=== PATIENT | male | born 1940 | race Caucasian/White ===

== ENCOUNTER 2016-02-26 10:20 | Observation (INO) | payer OTHER, MEDICARE ==
[~2016-02-26 10:20] MED LIST: BUPIVACAINE 0.5% 30 ML SDV ONE; SKIN ADHESIVE (DERMABOND) 1 EACH TP ONE
[2016-02-26] MEDS ORDERED: CHLORHEXIDINE GLUC HIBICLENS 118 ML BTL TP ONE (10:59)
[2016-02-26] MEDS ORDERED: LIDOCAINE 1% 5 ML SDV ONE ×2 (11:05→11:21)
[2016-02-26] MEDS ORDERED: ceFAZolin 2 GM/DEXTROSE 100 ML IV ONE (11:30)
[2016-02-26] MEDS ORDERED: LR 1,000 ML IV ONE (11:36)
[2016-02-26] MEDS ORDERED: MIDAZOLAM 2 MG/2 ML VIAL ONE (11:47)
[2016-02-26] MEDS ORDERED: fentaNYL 100 MCG/2 ML INJ ONE (11:48)
[2016-02-26] MEDS ORDERED: PROPOFOL 200 MG/20 ML VIAL ONE (12:05)
[2016-02-26] MEDS ORDERED: fentaNYL 250 MCG/5 ML INJ ONE (12:05)
[2016-02-26] MEDS ORDERED: GLYCOPYRROLATE 0.2 MG/1 ML VIAL ONE (12:09)
[2016-02-26] MEDS ORDERED: METOCLOPRAMIDE 10 MG/2 ML VIAL ONE (12:09)
[2016-02-26] MEDS ORDERED: LIDOCAINE 2% JELLY 5 ML TUBE ONE (12:10)
[2016-02-26] MEDS ORDERED: DEXAMETHASONE 4 MG/ML VIAL ONE (13:14)
[2016-02-26] MEDS ORDERED: LIDOCAINE 2% 5 ML SDV ONE (13:37)
[2016-02-26] MEDS ORDERED: VASOPRESSIN 20 UNIT/ML VIAL ONE (13:37)
[2016-02-26] MEDS ORDERED: ROPIVACAINE HCL 150 MG/30 ML INJ ONE ×2 (13:38)
[2016-02-26] MEDS ORDERED: PHENYLEPHRINE HCL 100 MCG/ML SYR ONE (13:42)
[2016-02-26] MEDS ORDERED: ROPIVACAINE 0.2% 1,100 MG in PUMP SET 1 EA NB SCH ×2 (14:30→16:30)
[2016-02-26] MEDS ORDERED: ONDANSETRON 4 MG/2 ML VIAL ONE (15:29)
[2016-02-26] MEDS ORDERED: FAMOTIDINE 20 MG TAB PO PRN (15:59)
[2016-02-26] MEDS ORDERED: ONDANSETRON DISINTEGRATING 4 MG TAB PO PRN (15:59)
[2016-02-26] MEDS ORDERED: OXYCODONE/APAP 5/325 TAB PO PRN (15:59)
[2016-02-26] MEDS ORDERED: SIMETHICONE 80 MG TAB CHEW PO PRN (15:59)
[2016-02-26] MEDS ORDERED: ACETAMINOPHEN 325 MG TAB PO PRN (15:59)
[2016-02-26] MEDS ORDERED: HYDROmorphONE/DILAUDID 1 MG/ML SYR IVP PRN (15:59)
[2016-02-26] MEDS ORDERED: TEMAZEPAM 15 MG CAP PO PRN (15:59)
[2016-02-26] MEDS ORDERED: DIAZEPAM 5 MG TAB PO PRN (15:59)
[2016-02-26] MEDS ORDERED: HYDROCODONE/APAP 5/325 TAB PO PRN (15:59)
[2016-02-26] MEDS ORDERED: diphenhydrAMINE 25 MG CAP PO PRN (15:59)
[2016-02-26] MEDS ORDERED: D5W 1/2 NS W/ 20 KCl/L 1,000 ML IV SCH (16:00)
--- NOTE | 2016-02-26 16:04 | POSTOPPROG ---
Post Op Note Date of Operation: 02/26/16 Surgeon: Saeid Adkins [employer] Sales Representative: Shari Anesthesiologist: Myron Anesthesia: GET(General Endotracheal) Pre-op Diagnosis: left hindfoot djd Post-op Diagnosis: same Indication: above Procedure: left triple arthrodesis Findings: djd Inf/Abcess present in the surg proc area at time of surgery?: No EBL: 50-100
--- NOTE | 2016-02-26 16:57 | GOP ---
[f rep st] OPERATIVE REPORT DATE OF OPERATION: 02/26/2016 SURGEON: Saeid Adkins MD [employer] UNDERWRITER: Edenilson Mccarthy SA ANESTHESIA: General with popliteal block and adductor canal block. 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 POSTOPERATIVE DIAGNOSIS: Left severe adult acquired flatfoot deformity and hindfoot arthritis, tendo-Achilles contracture. PROCEDURE PERFORMED: 1. Left foot triple arthrodesis with fusion of the subtalar joint, the talonavicular joint and calcaneocuboid joint. 2. Lateral column lengthening through the calcaneocuboid joint fusion. 3. Tendo-Achilles lengthening [place] triple step cut. FINDINGS: SPECIMENS: None. ESTIMATED BLOOD LOSS: 50 mL. INDICATIONS: A 75-year-old male with severe flatfoot deformity and arthritis who presented with pain. He had failed conservative management. We discussed risks of nonunion, malunion, malposition, wound break down, hardware failure and nerve injury and elected to proceed. Informed consent was obtained, all questions were answered and he was marked preoperatively. DESCRIPTION OF PROCEDURE: He was taken to the operative suite. Antibiotics, 2 g of Ancef, and a block administered per anesthesia. A sterile prep and drape in normal fashion. Time-out was performed verifying site, side, location in agreement with the team. Incision was made at the sinus tarsi approach. Excision of the calcaneocuboid joint. Protected the soft tissue structures including the peroneal tendons and dissected down to the joint. I opened up the subtalar joint and calcaneocuboid joint and released these to help correct the deformity. There was arthritis present with severe deformity. I cleaned out and prepared the joints out with a combination of chisel saws, Rongeurs, curettes down to bleeding cancellous bony surfaces. I then exposed the lateral portion of the talonavicular joint and prepared this as well. We made a medial incision over the talonavicular joint and exposed this. The talar head was grossly dislocated out of the navicular through this incision. I was able to prepare the joint surface of the talonavicular joint through this incision down to bleeding cancellous bone. We used trials and selected a 10 degree Monk wedge and then manipulated the foot into what I felt like was a good correct position to pin the talonavicular joint. I pinned the subtalar joint with the wedge trial placed. I then placed bone graft in the subtalar joint and then placed a guide pin for an Acutrak screw and placed 7.5 Acutrak screw across this and then used a 2nd screw. Next, I hydrated the Monk wedge. Repinned the talonavicular joint and achieved distal correction. I felt this had compressed. I placed the Monk wedge in place and placed a plate over this and provisionally fixed this. I then placed Acutrak screws across the talonavicular joint, 3 in total. And then placed the plate achieving compression of the wedge in the calcaneocuboid joint. I then let down the tourniquet, obtained hemostasis, thoroughly irrigated this, and closed this with 0 Vicryl, 2-0 Vicryl, 3-0 nylon, 3-0 Monocryl, Dermabond and placed in sterile dressing and splint and taken to PACU in stable condition. IMPLANTS: Acutrak screws 7.5 and 5.5, as well as Acutrak 4 hole peanut plate and 10 Monk allograft bone wedge, 2 cc of allograft bone. COMPLICATIONS: None. DRAINS: None. CONDITION: Stable. /[id number]/MODL MTDD
[2016-02-26 17:33] VITALS: RESP 16
[2016-02-26] MEDS ORDERED: PRAVASTATIN SODIUM 20 MG TAB PO SCH (18:00)
[2016-02-26] MEDS: ceFAZolin 2 GM/DEXTROSE 100 ML IV SCH (21:10)
[2016-02-26] MEDS: METOPROLOL TARTRATE 50 MG TAB PO SCH (21:11)
[2016-02-27 05:30] LABS: HEMOGLOBIN 11.6 g/dL (13.7-17.5)
[2016-02-27] MEDS: ceFAZolin 2 GM/DEXTROSE 100 ML IV SCH (05:39)
[2016-02-27 08:46] VITALS: BP 139/83; TEMP 98.4
[2016-02-27] MEDS ORDERED: ASPIRIN 81 MG CHEWABLE TAB PO SCH (09:00)
[2016-02-27] MEDS ORDERED: NIACIN 500 MG TAB PO SCH (09:00)
[2016-02-27] MEDS ORDERED: ENOXAPARIN 40 MG/0.4 ML SYR SC SCH (09:00)
[2016-02-27] MEDS ORDERED: DOXAZOSIN MESYLATE 1 MG TAB PO SCH (09:00)
[2016-02-27] MEDS ORDERED: OMEGA-3 FATTY ACIDS 1,000 MG CAP PO SCH (09:00)
--- NOTE | 2016-02-27 09:36 | SOAPPROG ---
JUAN JOSE Progress Note Assessment/Plan: Assessment: s/p L triple arthrodesis Plan: NWB LLE ASA for dvt prophalaxisis for home d/c home elavet ice 02/27/16 09:35 Subjective: min pain Objective: Vital Signs Temp Pulse Resp BP Pulse Ox 36.9 C 79 16 139/83 H 97 02/27/16 08:00 02/27/16 08:00 02/27/16 08:00 02/27/16 08:00 02/27/16 08:00 Laboratory Results 02/27/16 05:14 02/26/16 02/27/16 02/28/16 05:59 05:59 05:59 Intake Total 3000 Output Total 420 350 Balance 2580 -350 splint intact toes numb ICD10 Worksheet Patient Problems: Problems Problem Status Diagnosed Postoperative atrial fibrillation Acute S/P CABG x 3 Acute CAD (coronary artery disease), [place] coronary artery Chronic Coronary stent restenosis Chronic
[2016-02-27] MEDS: METOPROLOL TARTRATE 50 MG TAB PO SCH (09:44)
--- NOTE | 2016-02-27 10:29 | GDS ---
[f rep st] DISCHARGE SUMMARY REASON FOR HOSPITALIZATION: Left triple arthrodesis. HOSPITAL COURSE: He was admitted to the hospital after a left triple arthrodesis. He was able to ob tain good pain control. He cleared physical therapy, tolerated diet and no additional concerns. Met criteria for discharge home. DISPOSITION: Home. CONDITION: Stable. CONSULTING PHYSICIANS: None. PROCEDURE: Left triple arthrodesis. He was sent home on a regular diet. He was sent home nonweightbearing. He was sent home in a splint , to keep this dry. Will elevate as much as possible. He was given pain medication, oxycodone Ultra m as well as Zofran. He will restart his home medications including his aspirin which will serve as DVT prophylaxis. He will call or come into the hospital if he has chest pain, shortness of breath, abnormal bleeding or other concerns. /[id number]/MODL
--- NOTE | 2016-02-27 12:04 | PDIAF ---
- Diagnosis Code Status: Full Code - Medication Management Discharge Medications: Medications to Continue on Transfer Aspirin [Aspirin 81mg (*)] 81 mg PO DAILY 06/07/12 [Last Taken 02/23/16] Doxazosin Mesylate [Cardura 1 MG (*)] 1 mg PO DAILY 06/07/12 [Last Taken ] Simvastatin [Zocor 10 mg] 10 mg PO DAILY18 06/07/12 [Last Taken 02/25/16] Herbals/Supplements -Info Only 1 ea PO DAILY 08/23/15 [Last Taken 02/19/16] Niacin [Niacin 500 mg (*)] 250 mg PO DAILY 08/23/15 [Last Taken 02/19/16] Metoprolol Tartrate [Lopressor 50 mg (*)] 50 mg PO BID 08/28/15 [Last Taken 05/09] [place]-3 Fatty Acids [Fish Oil 1000 mg (*)] 1,000 mg PO DAILY 08/28/15 [Last Taken 02/19/16] Hydrochlorothiazide [HCTZ (*)] 25 mg PO DAILY@18 02/19/16 [Last Taken 02/25/16] Aspirin [Aspirin 81mg (*)] 81 mg PO DAILY #0 tab.chew 02/27/16 [Last Taken Unknown] Discharge Medications: Refer to the Discharge Home Medication list for PRN reason. - Orders Services needed: Home Care, Physical Therapy, Occupational Therapy Home Care Face to Face: I certify that this patient was under my care and that I had the required [id number] encounter meeting the encounter requirements on the discharge day. My findings support the fact that the patient is homebound as defined in CMS Chapter 7 Medicare Benefits Manual 30.1.1, The condition of the patient is such that there exists a normal inability to leave home and consequently, leaving home would require a considerable and taxing effort. Diet Recommendation: no restrictions on diet Diet Texture: Regular Texture Diet - Follow Up Care Current Providers and Referrals: DUTCH CLINTON [Primary Care Provider] -
[2016-02-27 14:09] VITALS: PULSE 72; O2SAT 98
== END 2016-02-27 12:06 | disposition home health service (06) ==
LOC: F3N 10:20
PROVIDERS: ADMIT Orthopaedic Surgery; ATTEND Orthopaedic Surgery
PROC: 0SU Lower Joints, Supplement (ICD-10-PCS; principal; 2016-02-26 12:00)
PROC: 0SGG04Z Fusion of Left Ankle Joint with Internal Fixation Device, Open Approach (ICD-10-PCS; principal; 2016-02-26 12:00)
PROC: 0LNT0ZZ Release Left Ankle Tendon, Open Approach (ICD-10-PCS; principal; 2016-02-26 12:00)
DX: M19.072 Primary osteoarthritis, left ankle and foot (principal); M21.42 Flat foot [pes planus] (acquired), left foot; M24.572 Contracture, left ankle
CPT/HCPCS: 27685; 27870; 97162; 97166; 97535; C1713; C1762; C1769; G8978; G8979; G8987; G8988; J0690; J1100; J1650; J2250; J2370; J2405; J2704; J2765; J2795; J3010

== ENCOUNTER → 2016-11-06 | Outpatient (CLI) | payer OTHER, MEDICARE | LOC: BHLMT 09:00 | PROVIDERS: ATTEND Internal Medicine Interventional Cardiology | DX: Z01.810 Encounter for preprocedural cardiovascular examination (principal); I25.10 Atherosclerotic heart disease of native coronary artery without angina pectoris; I10 Essential (primary) hypertension; E78.5 Hyperlipidemia, unspecified | CPT/HCPCS: 93005-PO ==

== ENCOUNTER 2017-08-24 06:09 | Observation (INO) | payer OTHER, MEDICARE ==
--- NOTE | 2017-08-24 06:12 | EDPHY ---
H & P Time Seen by Provider: 08/24/17 06:12 HPI/ROS: HPI CHIEF COMPLAINT: Chest discomfort left arm pain HISTORY OF PRESENT ILLNESS: Patient is a 76-year-old male, presents emergency room with chest discomfort. He states around 2:00 a.m. He developed substernal left-sided pressure dull ache in the left side of his chest. He had some referred pain down his left arm with numbness and tingling. He denies any pleuritic pain or shortness of breath associated with that he denies any nausea or diaphoresis. No jaw pain or neck pain. This lasted about 45 min to an hour it concerned him and decided come the emergency room at 6:15 a.m. In the morning. Currently denies any significant pain. He does tell me over the past month he has had this for 5 times. He is unsure if it actually happens exertion he does know happens at rest. Past Medical History: History of hypertension, hyperlipidemia, coronary artery disease with stents, bypass Past Surgical History: CABG Social History: Denies daily use of drugs alcohol tobacco. Family History: Noncontributory ROS REVIEW OF SYSTEMS: A comprehensive 10 point review of systems is otherwise negative aside from elements mentioned in the history of present illness. Exam Constitutional nontoxic appearing, triage nursing summary reviewed, vital signs reviewed, awake/alert. Eyes normal conjunctivae and sclera, EOMI, PERRLA. HENT normal inspection, atraumatic, moist mucus membranes, no epistaxis, neck supple/ no meningismus, no raccoon eyes. Respiratory clear to auscultation bilaterally, normal breath sounds, no respiratory distress, no wheezing. Cardiovascular rate normal, regular rhythm, no murmur, no edema, distal pulses normal. Gastrointestinal soft, non-tender, no rebound, no guarding, normal bowel sounds, no distension, no pulsatile mass. Genitourinary no CVA tenderness. Musculoskeletal no midline vertebral tenderness, full range of motion, no calf swelling, no tenderness of extremities, no meningismus, good pulses, neurovascularly intact. Skin pink, warm, & dry, no rash, skin atraumatic. Neurologic awake, alert and oriented x 3, AAOx3, moves all 4 extremities equally, motor intact, sensory intact, CN II-XII intact, normal cerebellar, normal vision, normal speech. Psychiatric normal mood/affect. Heme/Lymph/Immune no lymphadenopathy. Differential diagnosis includes but is not limited to: ACS, atypical chest pain , pneumothorax, pneumonia, pulmonary embolism, aortic dissection, congestive heart failure, tumor, musculoskeletal pain, esophageal pain, GERD, peptic ulcer disease, pancreatitis Medical Decision Making: Plan for this patient IV establishment full secured entrance monitor obtain EKG to rule out acute coronary syndrome, obtain troponin, chest x -ray, full-dose aspirin and re-evaluate. Patient has significant cardiovascular risk factors most likely will need to be admitted for further chest pain evaluation. Re-evaluation: EKG interpretation by me on record in [employer] system. Impression time of EKG 6:16 a.m., this is sinus rhythm rate of 64 there is incomplete left bundle- branch block present. There is no ST elevation there is no significant ST depression there is no significant T-wave inversions. When I compare this to his old EKG dated 08/28/2015 very similar morphology. Troponin noted to be 0.00. ED x-ray chest one view: Cardiomegaly present. Patient need to be admitted the hospital service for further cardiac evaluation his cardiovascular risk factors include hypertension, hyperlipidemia, coronary disease with stents, CABG. 0650: Patient is chest pain-free at this time will need admission. No evidence of acute coronary syndrome at this time. 0709AM: Spoke with Hospalist service Dr. Lara agrees to admit. Source: Patient - Medical/Surgical History Hx Asthma: No Hx Chronic Respiratory Disease: No Hx Diabetes: No Hx Cardiac Disease: Yes Hx Renal Disease: No Hx Cirrhosis: No Hx Alcoholism: No Hx HIV/AIDS: No Hx Splenectomy or Spleen Trauma: No Other PMH: CAD w/ Stents, HTN, HLD, family history of heart disease - Social History Smoking Status: Never smoked Constitutional: Initial Vital Signs Temperature (C) 36.6 C 08/24/17 06:10 Heart Rate 67 08/24/17 06:10 Respiratory Rate 16 08/24/17 06:10 Blood Pressure 177/93 H 08/24/17 06:10 O2 Sat (%) 95 08/24/17 06:10 O2 Delivery Mode Room Air Allergies/Adverse Reactions: No Known Allergies Allergy (Verified 08/24/17 06:13) Home Medications: Medication Instructions Recorded Herbals/Supplements -Info Only 1 ea PO DAILY 08/23/15 Niacin [Niacin 500 mg (*)] 500 mg PO HS 08/23/15 Hydrochlorothiazide [HCTZ (*)] 25 mg PO DAILY 02/19/16 Aspirin [Aspirin 81mg (*)] 81 mg PO DAILY #0 tab.chew 02/27/16 Metoprolol Tartrate [Lopressor 25 25 mg PO BID 08/24/17 mg (*)] Medical Decision Making - Data Points Laboratory Results: Laboratory Results 08/24/17 06:22 08/24/17 06:22 Medications Given: Acetaminophen (Tylenol) 650 mg PO Q4HRS PRN PRN Reason: Pain, Mild/Fever, Can Take PO Stop: 02/20/18 07:08 Last Admin: 08/25/17 01:11 Dose: 650 mg Enoxaparin Sodium (Lovenox) 40 mg SC DAILY [facility] Stop: 02/20/18 08:59 Last Admin: 08/24/17 10:05 Dose: 40 mg Metoprolol Tartrate (Lopressor) 25 mg PO BID [facility] Stop: 02/20/18 09:44 Last Admin: 08/24/17 20:44 Dose: 25 mg Point of Care Test Results: Chemistry 08/24/17 06:28 POC Troponin I 0.00 ng/mL ng/mL (0.00-0.08) Departure - Departure Disposition: [facility] Inpatient Acute Clinical Impression: Chest pain Qualifiers: Chest pain type: unspecified Qualified Code(s): R07.9 - Chest pain, unspecified Condition: Fair
--- NOTE | 2017-08-24 06:18 | CPEKG ---
Heart Rate: 64 RR Interval: 938 P-R Interval: 188 QRSD Interval: 116 QT Interval: 424 QTC Interval: 438 P [place]: 17 QRS [place]: -63 T Wave [place]: 25 EKG Severity - ABNORMAL ECG - EKG Impression: SINUS RHYTHM EKG Impression: ATRIAL PREMATURE COMPLEX EKG Impression: INCOMPLETE LEFT BUNDLE BRANCH BLOCK EKG Impression: ANTERIOR Q WAVES, POSSIBLY DUE TO ILBBB Electronically Signed By: Momo Schaffer 24-Aug-2017 08:07:32
[2017-08-24 06:33] LABS: PLATELET COUNT 208 10^3/uL (150-400)
[2017-08-24 06:41] LABS: INR 0.99 (0.83-1.16); PROTIME(PATIENT) 13.3 SEC (12.0-15.0)
[2017-08-24] MEDS ORDERED: ONDANSETRON 4 MG/2 ML VIAL IVP PRN (07:09)
[2017-08-24] MEDS ORDERED: ONDANSETRON DISINTEGRATING 4 MG TAB PO PRN (07:09)
--- NOTE | 2017-08-24 07:38 | PDGENHP ---
History and Physical - Chief Complaint Chest pain - History of Present Illness 76 yo M w/ hx of CAD s/p PCI and CABG presents with chest pain. Patient tells me he has had intermittent chest pain for several months. Over the last month, this has occurred every couple of days, sometimes at rest but occasionally with exertion. He exercises 5-6x weekly at the gym. Early this morning, around 2 AM, he had an episode of pain he found more concerning. He describes it as left sided, first as 4/10 severity but progressed to 8/10 severity. The pain involved L arm numbness as well. The duration of the pain was about 45 minutes, he denies additional associated symptoms. Work-up in the ED has been unremarkable so far with ECG stable compared to prior and troponin negative. He is currently chest pain free. Case discussed with Dr. Giraldo, previous records reviewed. History Information - Allergies/Home Medication List Allergies/Adverse Reactions: No Known Allergies Allergy (Verified 08/24/17 06:13) Home Medications: Simvastatin [Zocor 10 mg] 10 mg PO DAILY18 06/07/12 [Last Taken 02/25/16] Herbals/Supplements -Info Only 1 ea PO DAILY 08/23/15 [Last Taken 02/19/16] Niacin [Niacin 500 mg (*)] 250 mg PO DAILY 08/23/15 [Last Taken 02/19/16] Hydrochlorothiazide [HCTZ (*)] 25 mg PO DAILY@18 02/19/16 [Last Taken 02/25/16] Metoprolol Tartrate [Lopressor 25 mg (*)] 25 mg PO BID 08/24/17 [Last Taken 04/12 05:00] I have personally reviewed and updated: family history, medical history - Past Medical History coronary artery disease - Surgical History Reports: coronary bypass surgery, coronary stent - Family History Positive for: CAD - Social History Smoking Status: Never smoked Review of Systems Review of Systems: ROS: 10pt was reviewed & negative except for what was stated in HPI & below Physical Exam Physical Exam: Temp Pulse Resp BP Pulse Ox 36.6 C 67 16 177/93 H 95 08/24/17 06:10 08/24/17 06:10 08/24/17 06:10 08/24/17 06:10 08/24/17 06:10 Constitutional: no apparent distress, not in pain Eyes: PERRL, EOMI Ears, Nose, Mouth, Throat: moist mucous membranes, no oral mucosal ulcers Cardiovascular: regular rate and rhythym, other (S4, occasional irregular beats) , No edema Respiratory: no respiratory distress, clear to auscultation Gastrointestinal: normoactive bowel sounds, soft, non-tender abdomen Skin: warm, normal color Musculoskeletal: full muscle strength, no muscle tenderness Neurologic: AAOx3, CN II-XII Intact Psychiatric: interacting appropriately, not anxious Lab Data & Imaging Review 08/24/17 06:22 08/24/17 06:22 WBC 7.04 10^3/uL (3.80-9.50) 08/24/17 06:22 RBC 4.62 10^6/uL (4.40-6.38) 08/24/17 06:22 Hgb 14.8 g/dL (13.7-17.5) 08/24/17 06:22 Hct 42.3 % (40.0-51.0) 08/24/17 06:22 MCV 91.6 fL (81.5-99.8) 08/24/17 06:22 MCH 32.0 pg (27.9-34.1) 08/24/17 06:22 MCHC 35.0 g/dL (32.4-36.7) 08/24/17 06:22 RDW 13.1 % (11.5-15.2) 08/24/17 06:22 Plt Count 208 10^3/uL (150-400) 08/24/17 06:22 MPV 9.8 fL (8.7-11.7) 08/24/17 06:22 Neut % (Auto) 64.4 % (39.3-74.2) 08/24/17 06:22 Lymph % (Auto) 20.2 % (15.0-45.0) 08/24/17 06:22 [place] % (Auto) 11.9 % (4.5-13.0) 08/24/17 06:22 Eos % (Auto) 2.6 % (0.6-7.6) 08/24/17 06:22 Baso % (Auto) 0.6 % (0.3-1.7) 08/24/17 06:22 Nucleat RBC Rel Count 0.0 % (0.0-0.2) 08/24/17 06:22 Absolute Neuts (auto) 4.54 10^3/uL (1.70-6.50) 08/24/17 06:22 Absolute Lymphs (auto) 1.42 10^3/uL (1.00-3.00) 08/24/17 06:22 Absolute Monos (auto) 0.84 10^3/uL (0.30-0.80) H 08/24/17 06:22 Absolute Eos (auto) 0.18 10^3/uL (0.03-0.40) 08/24/17 06:22 Absolute Basos (auto) 0.04 10^3/uL (0.02-0.10) 08/24/17 06:22 Absolute Nucleated RBC 0.00 10^3/uL (0-0.01) 08/24/17 06:22 Immature Gran % 0.3 % (0.0-1.1) 08/24/17 06: Immature Gran # 0.02 10^3/uL (0.00-0.10) 08/24/17 06:22 PT 13.3 SEC (12.0-15.0) 08/24/17 06:22 INR 0.99 (0.83-1.16) 08/24/17 06:22 APTT 26.4 SEC (23.0-38.0) 08/24/17 06:22 Sodium 140 mEq/L (135-145) 08/24/17 06:22 Potassium 4.2 mEq/L (3.3-5.0) 08/24/17 06:22 Chloride 104 mEq/L (97-110) 08/24/17 06:22 Carbon Dioxide 28 mEq/l (22-31) 08/24/17 06:22 Anion Gap 8 mEq/L (8-16) 08/24/17 06:22 BUN 44 mg/dL (7-23) H 08/24/17 06:22 Creatinine 1.6 mg/dL (0.7-1.3) H 08/24/17 06:22 Estimated GFR 42 08/24/17 06:22 Glucose 103 mg/dL (70-100) H 08/24/17 06:22 Calcium 9.2 mg/dL (8.5-10.4) 08/24/17 06:22 Magnesium 2.1 mg/dL (1.6-2.3) 08/24/17 06:22 Total Bilirubin 0.5 mg/dL (0.1-1.4) 08/24/17 06:22 Conjugated Bilirubin 0.3 mg/dL (0.0-0.5) 08/24/17 06:22 Unconjugated Bilirubin 0.2 mg/dL (0.0-1.1) 08/24/17 06:22 AST 20 IU/L (17-59) 08/24/17 06:22 ALT 30 IU/L (21-72) 08/24/17 06:22 Alkaline Phosphatase 79 IU/L (38-126) 08/24/17 06:22 POC Troponin I 0.00 ng/mL (0.00-0.08) 08/24/17 06:28 NT-Pro-B Natriuret Pep 187 pg/mL (0-125) H 08/24/17 06:22 Total Protein 7.0 g/dL (6.3-8.2) 08/24/17 06:22 Albumin 3.5 g/dL (3.5-5.0) 08/24/17 06:22 Visualized and Interpreted Chest x-ray results: Yes Chest X-Ray results: no infiltrate Visualized and Interpreted EKG results: Yes EKG Interpretation: Positive for: left bundle branch block (Incomplete, similar to 2016 comparison), normal sinsus rhythm Assessment & Plan Assessment: 76 yo M w/ hx of CAD s/p CABG presents with chest pain. Plan: 1. Chest pain - Occurring every few days for 2 months with increased severity early this morning at rest. Initial work-up negative with normal troponin and ECG unchanged from prior(personally interpreted). He is currently chest pain free. - Admit to PCU for observation - Monitor on telemetry, trend cardiac enzymes (next at 1200). - Patient tells me he would be unable to exercise on a treadmill due to previous foot surgery - I will consult cardiology to consider nuclear stress vs. diagnostic LHC for further evaluation 2. Hx CAD - With hx of prior PCI followed by CABG [place] [address] [place]. He has not been taking his statin because he forgot it in [place]. - Cardiology consult as above - Continue home medications 3. HTN - Continue home medications, needs reconciliation Diet - NPO pending risk stratification Code - Full Ppx - LMWH Dispo - Admit under observation status
[2017-08-24] MEDS: ENOXAPARIN 40 MG/0.4 ML SYR SC SCH (10:05)
[2017-08-24] MEDS: METOPROLOL TARTRATE 25 MG TAB PO SCH ×2 (10:05→20:44)
--- NOTE | 2017-08-24 10:27 | PDCARCONS ---
Cardiology Consult Reason for Consult: Coronary artery disease, prior coronary artery bypass graft surgery, clinical presentation with chest pain. Chief Complaint: Chest pain. Requesting Physician: Dr. Lara. History of Present Illness: This is a 76-year-old male typically followed as an outpatient by Dr. Yannick Vergara. He has a history of coronary artery disease which dates back to the late s. Most recently in 2009 and 2012 he underwent PCI of the LAD and RCA respectively. Ultimately, in August of 2015 he presented with symptoms of exertional dyspnea. Following abnormal stress testing he underwent cardiac catheterization and ultimately three-vessel CABG. Historically his ejection fraction has been normal. He did have a single episode of postoperative atrial fibrillation following his CABG in August of 2015. There has been no indication of recurrent arrhythmias. He has not typically taken systemic anticoagulation since then. Cardiac risk factors in addition to his age/gender include hypertension and hyperlipidemia. At his baseline he is very active individual. He is currently retired. He likes to exercise 5 days a week doing a combination of cardiovascular training and weight training. He is usually able to exercise without chest discomfort. He states for the last several months he has been experiencing intermittent chest pain. Usually these occur at night and her usually not exacerbated by physical activities. He points to an area over his left chest and states that often times he is awaken from sleep with a "vice"like chest pain. He can find an area on the chest wall where he can push in reproduce his chest pain. These symptoms often times can be severe sometimes 8/10 in intensity. Usually they will partially resolved improving to a 2/10 in intensity which can last for several days at a time. Sometimes he thinks the pain is little bit worse with deep inspiration. He does note that his symptoms are similar to his prior chest discomfort during which times he has had his previous stents placed. He has not had associated symptoms of shortness of breath, nausea, vomiting or diaphoresis with these episodes of discomfort. Occasionally he does have a sensation of "flutter"in his chest. Additionally, he has episodes where he feels lightheaded. These were ancillary comments not related to his principal complaint. On arrival to the emergency department he was hemodynamically stable. His initial point of care troponin was negative. His initial ECG did not demonstrate any dynamic changes. He has been placed in the telemetry unit. Currently states he is nearly pain-free. History Information - Allergies/Home Medication List Allergies/Adverse Reactions: No Known Allergies Allergy (Verified 08/24/17 06:13) Home Medications: Herbals/Supplements -Info Only 1 ea PO DAILY 08/23/15 [Last Taken 02/19/16] Niacin [Niacin 500 mg (*)] 500 mg PO HS 08/23/15 [Last Taken 08/23/17] Hydrochlorothiazide [HCTZ (*)] 25 mg PO DAILY 02/19/16 [Last Taken 08/24/17 05: 00] Metoprolol Tartrate [Lopressor 25 mg (*)] 25 mg PO BID 08/24/17 [Last Taken 04/12 05:00] I have personally reviewed and updated: family history, medical history, social history, surgical history Past Medical History: Coronary artery disease with previous stenting and ultimately coronary artery bypass graft surgery 08/28/2015, hypertension, hyperlipidemia, mild COPD, BPH. - Surgical History Additional surgical history: Coronary artery bypass graft surgery x3 vessels in August of 2015, bilateral cataract surgery, bilateral blepharoplasty, foot surgery. - Social History Smoking Status: Never smoked Alcohol Use: Rarely Drug Use: None Additional social history: He is and accompanied by his of 9 years. As stated previously he likes to exercise regularly usually 5 days a week performing a combination of riding the exercise bicycle, using the rowing machine and doing light weights. He is originally from [place]. He has lived in [place] for more than 30 years. He is currently retired. Cardiac History - Cardiac History Past Cardiac History: CAD, PCI, CABG Physical Exam Physical Exam: Temp Pulse Resp BP Pulse Ox 37.0 C 62 18 131/71 H 95 08/24/17 07:47 08/24/17 07:47 08/24/17 07:47 08/24/17 07:47 08/24/17 07:47 Constitutional: no apparent distress, appears nourished, not in pain Eyes: PERRL, anicteric sclera, EOMI Ears, Nose, Mouth, Throat: moist mucous membranes, hearing normal, ears appear normal, no oral mucosal ulcers Cardiovascular: regular rate and rhythym, no murmur, rub, or gallop, pulses symmetric bilaterally, No JVD, No edema Peripheral Pulses: 2+: carotid (R), carotid (L) Respiratory: no respiratory distress, no rales or rhonchi, clear to auscultation Gastrointestinal: normoactive bowel sounds, soft, non-tender abdomen, no palpable masses Genitourinary: no bladder fullness, no bladder tenderness Skin: warm, normal color, no rashes or abrasions, no fluctuance, no induration, No mottled Musculoskeletal: full muscle strength, no muscle tenderness, normal joint ROM, no joint effusions Psychiatric: interacting appropriately, not anxious, not encephalopathic, thought process linear Lymph, Heme, Immunologic: no cervical LAD, no supraclavicular LAD Lab and Imaging 08/24/17 06:22 08/24/17 06:22 WBC 7.04 10^3/uL (3.80-9.50) 08/24/17 06:22 RBC 4.62 10^6/uL (4.40-6.38) 08/24/17 06:22 Hgb 14.8 g/dL (13.7-17.5) 08/24/17 06:22 Hct 42.3 % (40.0-51.0) 08/24/17 06:22 MCV 91.6 fL (81.5-99.8) 08/24/17 06:22 MCH 32.0 pg (27.9-34.1) 08/24/17 06:22 MCHC 35.0 g/dL (32.4-36.7) 08/24/17 06:22 RDW 13.1 % (11.5-15.2) 08/24/17 06:22 Plt Count 208 10^3/uL (150-400) 08/24/17 06:22 MPV 9.8 fL (8.7-11.7) 08/24/17 06:22 Neut % (Auto) 64.4 % (39.3-74.2) 08/24/17 06:22 Lymph % (Auto) 20.2 % (15.0-45.0) 08/24/17 06:22 [place] % (Auto) 11.9 % (4.5-13.0) 08/24/17 06:22 Eos % (Auto) 2.6 % (0.6-7.6) 08/24/17 06:22 Baso % (Auto) 0.6 % (0.3-1.7) 07/02/18 06:22 Nucleat RBC Rel Count 0.0 % (0.0-0.2) 08/24/17 06:22 Absolute Neuts (auto) 4.54 10^3/uL (1.70-6.50) 08/24/17 06:22 Absolute Lymphs (auto) 1.42 10^3/uL (1.00-3.00) 08/24/17 06:22 Absolute Monos (auto) 0.84 10^3/uL (0.30-0.80) H 08/24/17 06:22 Absolute Eos (auto) 0.18 10^3/uL (0.03-0.40) 08/24/17 06:22 Absolute Basos (auto) 0.04 10^3/uL (0.02-0.10) 08/24/17 06:22 Absolute Nucleated RBC 0.00 10^3/uL (0-0.01) 08/24/17 06:22 Immature Gran % 0.3 % (0.0-1.1) 08/24/17 06:22 Immature Gran # 0.02 10^3/uL (0.00-0.10) 08/24/17 06:22 PT 13.3 SEC (12.0-15.0) 08/24/17 06:22 INR 0.99 (0.83-1.16) 08/24/17 06:22 APTT 26.4 SEC (23.0-38.0) 08/24/17 06:22 Sodium 140 mEq/L (135-145) 08/24/17 06:22 Potassium 4.2 mEq/L (3.3-5.0) 08/24/17 06:22 Chloride 104 mEq/L (97-110) 08/24/17 06:22 Carbon Dioxide 28 mEq/l (22-31) 08/24/17 06:22 Anion Gap 8 mEq/L (8-16) 08/24/17 06:22 BUN 44 mg/dL (7-23) H 08/24/17 06:22 Creatinine 1.6 mg/dL (0.7-1.3) H 08/24/17 06:22 Estimated GFR 42 08/24/17 06:22 Glucose 103 mg/dL (70-100) H 08/24/17 06:22 Calcium 9.2 mg/dL (8.5-10.4) 08/24/17 06:22 Magnesium 2.1 mg/dL (1.6-2.3) 08/24/17 06:22 Total Bilirubin 0.5 mg/dL (0.1-1.4) 08/24/17 06:22 Conjugated Bilirubin 0.3 mg/dL (0.0-0.5) 08/24/17 06:22 Unconjugated Bilirubin 0.2 mg/dL (0.0-1.1) 08/24/17 06:22 AST 20 IU/L (17-59) 08/24/17 06:22 ALT 30 IU/L (21-72) 08/24/17 06:22 Alkaline Phosphatase 79 IU/L (38-126) 08/24/17 06:22 POC Troponin I 0.00 ng/mL (0.00-0.08) 08/24/17 06:28 NT-Pro-B Natriuret Pep 187 pg/mL (0-125) H 08/24/17 06:22 Total Protein 7.0 g/dL (6.3-8.2) 08/24/17 06:22 Albumin 3.5 g/dL (3.5-5.0) 08/24/17 06:22 Visualized and Interpreted Chest x-ray results: Yes Chest X-ray Interpretation: no infiltrate Visualized and Interpreted EKG results: Yes EKG additional interpertation: Normal sinus rhythm. Left anterior fascicular block. Anteroseptal AL age undetermined likely related to the presence of the left anterior fascicular block. No dynamic ST/T changes. Telemetry: Normal sinus rhythm. No arrhythmia. Echocardiogram: Pending. A/P Assessment: 76-year-old male who has an extensive coronary artery disease history dating back to the late 90s with multiple prior PCIs culminating in 3 vessel bypass surgery 08/28/2015. Typically he has done very well. Historically, he has had a preserved ejection fraction and has been active and asymptomatic. He presents now with a several month history of atypical chest discomfort. His chest pain is atypical in the sense that he can localize an area on the chest wall that reproduces his symptoms. He does, however, state that his current symptoms are similar to his symptoms during which time in the past he has had coronary interventions. Thus far his cardiac enzymes have been negative, his ECG is unremarkable and his hemodynamics have been stable. His symptoms really are not suggestive of other processes such as PE or aortic dissection. Additionally , there is no indication of an infectious process at the present time. Plan: 1. He has been admitted to telemetry and will be monitored. 2. Sequential cardiac enzymes have been ordered. 3. His home medications will be restarted. 4. I have ordered an echocardiogram to evaluate for the presence of new wall motion abnormalities. 5. As long as his noon troponin is negative I think that he can eat today. I do not think he requires urgent cardiac catheterization or testing that requires him to be NPO. 6. I have written for a stress myocardial perfusion imaging study which can be performed tomorrow provided his cardiac enzymes remain negative. 7. We will plan to evaluate his lipid status and level of blood pressure control during this hospitalization. 8. We will follow along with you. Review of Systems Review of Systems: - Review of Systems Constitutional: no symptoms reported EENTM: no symptoms reported Respiratory: no symptoms reported Gastrointestinal/Abdominal: see HPI Genitourinary: no symptoms Musculoskelatal: see HPI Skin: no symptoms Neurological: no symptoms Hematologic/Lymphatic: no symptoms reported Immunologic/allergic: no symptoms reported All Other Systems: Reviewed and Negative
--- NOTE | 2017-08-24 12:45 | ECHO ---
[email or web address] [address] [address] Main: [phone] Fax: Transthoracic Echocardiogram Name: MACI KASPER MR#: [id number] Study Date: 08/24/2017 Study Time: 11:33 AM Date of : 1940 Age: 76 year(s) Height: 175.3 cm (69 in.) Weight: 79.38 kg (175 lb.) BSA: 1.95 m2 Gender: Male Examination: Echo Indication: Coronary artery disease, h/o CABG, Chest Pain Image Quality: Technically Difficult Contrast: Requested by: Russ Stewart BP: 118 mmHg/78 mmHg Heart Rate: Rhythm: Indication: Coronary artery disease, h/o CABG, Chest Pain Procedure Staff Angiographer: Janee Liu [facility] Reading Physician: Russ Stewart MD Requesting Provider: Conclusions: Normal size left ventricle. Borderline concentric LV hypertrophy. Low normal left ventricular systolic function. EF is 49 %. Grade 1 diastolic dysfunction (abnormal relaxation). The left atrium is mildly dilated. Trivial to mild mitral regurgitation. Trivial to mild aortic valve regurgitation. Mild tricuspid regurgitation is present. Right ventricular systolic pressure measures 30mmHg. Measurements: Chambers Valvular Assessment AV/MV Valvular Assessment TV/PV Normal Normal Normal Name Value Range Name Value Range Name Value Range Ao Ela (MM): 3.6 cm (2.2 cm-3.7 AV Vmax: 0.85 m/s (1 m/s-1.7 TR Vmax: 2.52 mm/s ( - ) cm) m/s) TR PGmax: 25 mmHg ( - ) IVSd (2D): 1.0 cm (0.6 cm-1.1 AV maxP mmHg ( - ) syst. PAP: 30 mmHg ( - ) cm) LVOT Vmax: 0.66 m/s (0.7 m/s-1.1 PV Vmax: 1.00 m/s (0.6 m/s-0.9 LVDd (2D): 5.5 cm (4.2 cm-5.9 m/s) m/s) cm) MV E Vmax: 0.38 m/s ( - ) PV PGmax: 4 mmHg ( - ) LVDs (2D): 3.9 cm (2.1 cm-4 MV A Vmax: 0.47 m/s ( - ) cm) MV E/A: 0.81 ( - ) LVPWd (2D): 0.9 cm (0.6 cm-1 cm) LVEF (BP): 49 % (>=55 %) RVDd(2D): 2.6 cm (1.9 cm-3.8 cmmm) Continued Measurements: Patient: MACI KASPER Study Date: 08/24/2017 Page 1 of 2 11:33 AM Chambers Valvular Assessment AV/MV Valvular Assessment TV/PV Name Value Name Value Name Value LADs Lon.9 cm MV DecTime: 363 m/s CVP (est.): 5 mmHg LA Area: 23.2 cm2 MV E/E' Septal: 6.70 LA Volume: 73 ml MV E/E' Lateral: 6.50 LA Volume Index: 37.4 ml/m2 RA Area: 18.0 cm2 Findings: Left Ventricle: Normal size left ventricle. Borderline concentric LV hypertrophy. Low normal left ventricular systolic function. EF is 49 %. Grade 1 diastolic dysfunction (abnormal relaxation). Right Ventricle: Normal size right ventricle. Normal RV function. Left Atrium: The left atrium is mildly dilated. Right Atrium: The right atrium is borderline dilated. Mitral Valve: The mitral valve is normal in appearance and function. Trivial to mild mitral regurgitation. No mitral stenosis is present. Aortic Valve: The aortic valve is tri-leaflet. Trivial to mild aortic valve regurgitation. No aortic valve stenosis is present. Tricuspid Valve: The tricuspid valve is normal in appearance and function. Mild tricuspid regurgitation is present. Right ventricular systolic pressure measures 30mmHg. Pulmonic Valve: The pulmonic valve is normal in appearance and function. There is no pulmonic regurgitation seen. Aorta: Normal size aortic root measuring 3.6 cm. IVC: The IVC is not visualized. Pericardium: No pericardial effusion. (No Signature Object) Patient: MACI KASPER Study Date: 08/24/2017 Page 2 of 2 11:33 AM [id number]
--- NOTE | 2017-08-24 14:55 | HOSPPROG ---
Hospitalist Progress Note Assessment/Plan: 76 yo M w/ hx of CAD s/p CABG presents with chest pain. Plan: 1. Chest pain - Occurring every few days for 2 months with increased severity early this morning at rest. Initial work-up negative with normal troponin and ECG unchanged from prior(personally interpreted). He is currently chest pain free. - Admit to PCU - Monitor on telemetry, trend cardiac enzymes (next at 1200). - cardiology with plans for stress test in the am 2. Hx CAD - With hx of prior PCI followed by CABG [place] [address] Bingham. He has not been taking his statin because he forgot it in [place]. - Cardiology consult as above - Continue home medications 3. HTN - Continue home medications, needs reconciliation Diet - NPO pending risk stratification Code - Full Ppx - LMWH Dispo - Admit under observation status Objective: Vital Signs Temp Pulse Resp BP Pulse Ox 36.3 C 72 18 143/96 H 89 L 08/24/17 11:39 08/24/17 11:39 08/24/17 11:39 08/24/17 11:39 08/24/17 11:39 08/23/17 08/24/17 08/25/17 05:59 05:59 05:59 Output Total 150 Balance -150 PT 13.3 SEC (12.0-15.0) 08/24/17 06:22 INR 0.99 (0.83-1.16) 08/24/17 06:22 ICD10 Worksheet Patient Problems: Problems Problem Status Onset CAD (coronary artery disease), [place] coronary artery Chronic Coronary stent restenosis Chronic S/P CABG x 3 Acute Postoperative atrial fibrillation Acute Chest pain Acute
[2017-08-24] MEDS: ACETAMINOPHEN 325 MG TAB PO PRN (15:49)
[2017-08-25] MEDS ORDERED: NITROGLYCERIN 0.4 MG BTL SL ONE (01:02)
[2017-08-25] MEDS: ACETAMINOPHEN 325 MG TAB PO PRN ×2 (01:11→10:30)
[2017-08-25] MEDS ORDERED: REGADENOSON 0.4 MG/5 ML SYR IVP ONE (09:01)
[2017-08-25] MEDS: ENOXAPARIN 40 MG/0.4 ML SYR SC SCH (09:08)
--- NOTE | 2017-08-25 09:56 | CPR ---
[f rep st] NONINVASIVE CARDIAC PROCEDURE REPORT DATE OF PROCEDURE: 08/25/2017 PROCEDURE: Lexiscan nuclear stress test. INDICATION: The patient is a 76-year-old male with a history of coronary artery disease, status post CABG 2 years ago. He presented to the hospital with months of intermittent chest squeezing discomfo rt. It seems to be worse at night, waking him from his sleep. Over the last week, it has been relat ed with physical activity. Prior to the past week, it was not associated with anything in particular . PROCEDURE IN DETAIL: Consent was obtained, and the patient was placed on continuous telemetry. His resting EKG revealed normal sinus rhythm with a heart rate of 66, NC interval of 200, QRS duration of 116, with evidence of a left anterior fascicular block. His QTc is within normal limits at 453. He also has anterior Q-waves and diffuse T-wave flattening. The patient was infused with Lexiscan and complained of chest discomfort and flushing. He remained in normal sinus rhythm with PACs. There we re no significant ST-T wave changes with the infusion. He was given caffeine in the recovery phase w ith resolution of his symptoms. His blood pressure at rest was 128/72 and remained stable throughout the study. PLAN: Await nuclear images. /[id number]/MODL
[2017-08-25] MEDS: METOPROLOL TARTRATE 25 MG TAB PO SCH (10:29)
[2017-08-25 11:01] VITALS: BP 118/65
--- NOTE | 2017-08-25 11:41 | ASMTCASEMG ---
Living Arrangements What is your living Answers: With Spouse arrangement? Who do you live with? Type Of Residence What kind of residence do Answers: House you live in? Case Management Evaluation Functional: Able to Answers: Yes Notes: Patient is independent in return Home with Prior all ADLs Level of Function/Care Discharge Plan Comments Coordination Status Comments Notes: Pt admitted for chest pain. He has a hx of CAD and CABG. Pt had a stress test this morning and is awaiting results. Case Management to follow. Date Signed: 08/25/2017 11:41 AM Electronically Signed By:Janice Armijo
--- NOTE | 2017-08-25 13:21 | PDCARPN ---
Cardiology Progress Note Chief Complaint: Chest pain Assessment/Plan: Assessment: Dakota is a 76 y/o M with a history of CAD s/p CABG who presented to the hospital with months of intermittant chest discomfort. It typically wakes him from sleep and was relieved with Nitro yesterday. He can reproduce his pain with pressing on his chest. A nuclear stress test was negative for ischemia and he is currently CP free. Plan: 1. CAD s/p CABG- normal nuc. Continue medical management of his CAD with Aspirin, Metoprolol, Simvastatin, and Nitro PRN for CP. 2. Atypical CP- It is reproducible with palpation to his chest. He can take NSAIDS for pain. Follow up with Dr. Vergara in 1-2 weeks. 3. Hyperlipidemia- Resume Simvastatin. OK to d/c home. Follow up with Dr. Vergara in 1-2 weeks. 08/25/17 13:23 Subjective: He complained of chest discomfort early this morning which was relieved with Nitro. Reviewed/Discussed With: hospitalist Objective: Vital Signs (8 Hrs) Temp Pulse Resp BP Pulse Ox 08/25/17 11:00 36.6 C 63 16 118/65 96 08/25/17 07:15 36.5 C 74 16 108/69 92 Intake/Output (24 Hrs) 08/24/17 08/25/17 08/26/17 05:59 05:59 05:59 Intake Total 400 Output Total 150 Balance 250 Intake: Oral (ml) 400 Output: Urine (ml) 150 Urinal 150 Other: Weight 89.4 kg Result Diagrams: 08/24/17 06:22 08/25/17 03:09 Cardiac Labs: Cardiac Lab Results (72 Hrs) 08/24/17 08/24/17 18:25 12:50 Troponin I < 0.012 < 0.012 Telemetry: Sinus bradycardia. - Physical Exam Constitutional: WDWN Ears, Nose, Mouth, Throat: moist mucous membranes Cardiovascular: regular rate and rhythm, no murmurs, no rubs Respiratory: clear to auscultate bilat, no crackles, no wheezes Skin: no edema Neurologic: AAOx3 ICD10 Worksheet Patient Problems: Problems Problem Status Onset Chest pain Acute Postoperative atrial fibrillation Acute S/P CABG x 3 Acute CAD (coronary artery disease), [place] coronary artery Chronic Coronary stent restenosis Chronic
--- NOTE | 2017-08-25 13:44 | PDDCSUM ---
Discharge Summary Discharge Summary: Dates of service 08/24-08/25/17 Consultations: cardiology Procedures performed: echocardiogram, nuc stress test Hospital course by problem: 76 yo M w/ hx of CAD s/p CABG presents with chest pain. Plan: 1. Chest pain - with hx of CAD, but w/u negative including trops/ecg and negative nuc stress, pain is reproducible on exam 2. Hx CAD - With hx of prior PCI followed [place] CABG [place] [address] Bingham. He has not been taking his statin because he forgot it in [place]. 3. HTN - Continue metoprolol 4. HLD: resumed on simvastatin dc home in good condition f/u with PCP
== END 2017-08-25 16:01 | disposition home or self-care (01) ==
LOC: F2W 08:17
PROVIDERS: ADMIT Student in an Organized Health Care Education/Training Program; ATTEND Student in an Organized Health Care Education/Training Program
DX: R07.9 Chest pain, unspecified (principal); M79.602 Pain in left arm; I51.7 Cardiomegaly; I10 Essential (primary) hypertension; Z95.1 Presence of aortocoronary bypass graft
CPT/HCPCS: 71045; 78452; 93005; 93017; 93306; 99285; A9500; G0378; J1650; J2785; 84484-PO